=== PATIENT | female | born 1970 | race Caucasian/White ===

== ENCOUNTER 2023-06-11 14:21 | Emergency (ER) | payer OTHER ==
[~2023-06-11] VITALS: Ht 162.6 cm; Wt 90.7 kg
[2023-06-11 14:21] VITALS: BP_SYST 133; PULSE 82; RESP 18; TEMP 98.5; O2SAT 98
[2023-06-11] MEDS ORDERED: IBUP-1969 PO (15:40)
[2023-06-11] MEDS: IBUPROFEN 600 MG TABLET PO ONE (15:46)
== END 2023-06-11 15:49 | disposition home or self-care (01) ==
LOC: SED 14:21
DX: S60.221A Contusion of right hand, initial encounter (principal); W50.1XXA Accidental kick by another person, initial encounter; Y93.89 Activity, other specified; Y92.89 Other specified places as the place of occurrence of the external cause; Y99.8 Other external cause status
CPT/HCPCS: 73140; 99284